=== PATIENT | male | born 1960 | race Caucasian/White ===

== ENCOUNTER 2024-03-13 06:26 | Day surgery (SDC) | payer OTHER ==
[2024-03-09 11:56] VITALS: BMI 38.9
[2024-03-13 06:51] VITALS: RESP 16
[2024-03-13] MEDS ORDERED: LIDOCAINE HCL 1%, 10 MG/ML (20ML VIAL) ONE (07:14)
[2024-03-13] MEDS ORDERED: PROPOFOL 20 ML ONE ×2 (07:14→07:43)
[2024-03-13] MEDS ORDERED: MIDAZOLAM HCL 2 MG/2 ML SINGLE DOSE VIAL ONE ×2 (07:14→07:31)
[2024-03-13] MEDS ORDERED: LIDOCAINE HCL/PF 2% SDV 5ML VIAL ONE (07:15)
[2024-03-13] MEDS ORDERED: BUPIVACAINE HCL/PF 0.5% (5MG/ML) 10 ML VIAL ONE (07:35)
[2024-03-13] MEDS ORDERED: BUPIVACAINE HCL/PF 0.25% (2.5MG/ML) 10 ML VIAL ONE (07:35)
[2024-03-13] MEDS ORDERED: ceFAZolin SODIUM 1 GM VIAL ONE (07:45)
[2024-03-13] MEDS ORDERED: KETOROLAC TROMETHAMINE 30 MG/1 ML VIAL IVPUSH ONE (08:11)
[2024-03-13] MEDS ORDERED: ONDANSETRON 4 MG/2 ML VIAL IVPUSH PRN (08:11)
[2024-03-13] MEDS ORDERED: LACTATED RINGERS SOLUTION 1,000 ML IV SCH (08:15)
[2024-03-13 08:47] VITALS: BP 126/74; PULSE 43; TEMP 97.6
== END 2024-03-13 09:10 | disposition home or self-care (01) ==
LOC: FASU 06:26
PROVIDERS: ATTEND Orthopaedic Surgery
PROC: 01N50ZZ Release Median Nerve, Open Approach (ICD-10-PCS; principal; 2024-03-13 07:42)
DX: G56.01 Carpal tunnel syndrome, right upper limb (principal)
CPT/HCPCS: 94760